=== PATIENT | female | born 1945 | race Caucasian/White ===

== ENCOUNTER 2021-02-09 12:59 | Inpatient (IN) | payer MEDICARE, MEDICAID ==
[2021-02-09 13:43] LABS: #Eosinphils 0.1 10x3/uL (0.0-0.5); #Monocytes 0.5 10x3/uL (0.0-1.1); #Neutrophils 2.7 10x3/uL (1.5-8.4); %Basophils 0.5 % (0.0-2.0); %Eosinophils 1.9 % (0.0-6.0); %Lymphocytes 21.6 % (18.0-47.0); %Monocytes 12.3 % (0.0-10.0); %Neutrophils 63.5 % (40.0-75.0); Hemoglobin 11.3 g/dL (12.0-15.5); Mean Corpuscular Volume 93.8 fl (81.6-98.3); Platelet Count 159 10x3/uL (150-450); Red Blood Cell (RBC) Count 3.89 10x6/uL (3.90-5.03); White Blood Cell (WBC) Count 4.2 10x3/uL (3.5-10.5)
[2021-02-09] MEDS ORDERED: Ondansetron PF 4 MG/2 ML Vial ONE (13:59)
[2021-02-09 14:05] LABS: ALT (SGPT) 17 U/L (8-55); AST (SGOT) 27 U/L (5-34); Albumin 3.5 g/dL (3.4-4.8); Alkaline Phosphatase 45 U/L (40-110); Anion Gap 15 mmol/L (10-20); BUN (Urea Nitrogen) 14 mg/dL (9.8-20.1); Bilirubin, Total 0.7 mg/dL (0.2-1.2); Calc. Creatinine Clearance 0 mL/min (70-130); Calcium 8.4 mg/dL (7.8-10.44); Carbon Dioxide 25 mmol/L (23-31); Chloride 104 mmol/L (98-107); Globulin 2.3 g/dL (2.4-3.5); Glucose 118 mg/dL (83-110); Potassium 4.1 mmol/L (3.5-5.1); Protein, Total 5.8 g/dL (5.8-8.1); Sodium 140 mmol/L (136-145)
[2021-02-09] MEDS ORDERED: hydrALAZINE 20 MG/ML VIAL SLOW IVP PRN (15:13)
[2021-02-09] MEDS ORDERED: Aspirin 81 mg Enteric Coated Tablet PO SCH (16:30)
[2021-02-09] MEDS: Sodium Chloride 0.9% 1,000 ML IV SCH (17:10)
[2021-02-09] MEDS: Atorvastatin Calcium 40 MG TAB PO SCH (20:04)
[2021-02-09] MEDS: Apixaban 5 MG TAB PO SCH (20:04)
[2021-02-09] MEDS ORDERED: Lorazepam 0.5 MG TAB PO PRN (20:53)
[2021-02-09] MEDS ORDERED: Methocarbamol 500 MG TAB PO PRN (20:53)
[2021-02-09] MEDS ORDERED: oxyCODONE/Acetaminophen 5 mg/325 mg Tablet PO PRN (20:53)
[2021-02-09] MEDS ORDERED: Apixaban 5 MG TAB PO SCH (21:00)
[2021-02-09] MEDS ORDERED: Ondansetron ODT 4 MG TAB PO PRN (21:13)
[2021-02-09] MEDS: Pramipexole Di-HCl 0.25 MG TAB PO SCH (21:51)
[2021-02-09] MEDS: clonazePAM 1 MG TAB PO SCH (21:51)
[2021-02-09] MEDS: Gabapentin 300 MG CAP PO SCH (21:52)
[2021-02-09] MEDS: Carvedilol 25 MG TAB PO SCH (21:53)
[2021-02-10] MEDS ORDERED: oxyCODONE 5 MG TAB PO SCH ×2 (00:45→23:00)
[2021-02-10] MEDS ORDERED: Levothyroxine Sodium 88 MCG TAB PO SCH (06:00)
[2021-02-10 06:59] LABS: Cardiac Risk 6.3 (Less than 4.5)
[2021-02-10] MEDS ORDERED: Carvedilol 12.5 MG TAB PO SCH (08:00)
[2021-02-10] MEDS ORDERED: Aluminum & Magnesium Hydroxide 60 ML, Lidocaine 2% Viscous Solution 30 ML, diphenhydrAM... SSW SCH ×2 (09:00→09:30)
[2021-02-10] MEDS ORDERED: NIFEdipine XL 60 MG TAB PO SCH (09:00)
[2021-02-10] MEDS ORDERED: Aluminum & Magnesium Hydroxide 60 ML, diphenhydrAMINE 150 MG, Lidocaine 2% Viscous Solu... SSW SCH (10:00)
[2021-02-10] MEDS: Gabapentin 300 MG CAP PO SCH ×2 (10:59→20:16)
[2021-02-10] MEDS: Pramipexole Di-HCl 0.25 MG TAB PO SCH ×2 (10:59→20:15)
[2021-02-10] MEDS: Carvedilol 25 MG TAB PO SCH ×2 (11:00→20:15)
[2021-02-10] MEDS: Aspirin 81 mg Enteric Coated Tablet PO SCH (11:00)
[2021-02-10] MEDS: Furosemide 20 MG TAB PO SCH (11:00)
[2021-02-10] MEDS: Bupropion 150 MG XL TAB PO SCH (11:00)
[2021-02-10] MEDS: Levothyroxine Sodium 25 MCG TAB PO SCH (11:00)
[2021-02-10] MEDS: Apixaban 5 MG TAB PO SCH (11:00)
[2021-02-10] MEDS: Sodium Chloride 0.9% 1,000 ML IV SCH (11:01)
[2021-02-10] MEDS: Fenofibrate Nanocrystallized 145 MG TAB PO SCH (11:01)
[2021-02-10 12:49] LABS: SARS-CoV-2 PCR by NAA Not Detected (NotDetected)
[2021-02-10] MEDS ORDERED: LENVATINIB MESYLATE PO SCH (13:00)
[2021-02-10] MEDS: Aluminum & Magnesium Hydroxide 60 ML, diphenhydrAMINE 150 MG, Lidocaine 2% Viscous Solu... SSW SCH ×3 (17:08→20:19)
[2021-02-10] MEDS ORDERED: Acetaminophen 325 MG TAB PO PRN (18:28)
[2021-02-10] MEDS: clonazePAM 1 MG TAB PO SCH (20:16)
[2021-02-10] MEDS: Atorvastatin Calcium 40 MG TAB PO SCH (20:16)
[2021-02-10] MEDS: Enoxaparin Sodium 60 MG/0.6 ML SYRINGE SC SCH (20:23)
[2021-02-10] MEDS ORDERED: RAMELTEON 8 MG PO SCH (21:00)
[2021-02-11] MEDS: Sodium Chloride 0.9% 1,000 ML IV SCH (05:46)
[2021-02-11] MEDS: Levothyroxine Sodium 25 MCG TAB PO SCH (06:58)
[2021-02-11] MEDS: Fenofibrate Nanocrystallized 145 MG TAB PO SCH (08:29)
[2021-02-11] MEDS: Pramipexole Di-HCl 0.25 MG TAB PO SCH ×2 (08:29→20:15)
[2021-02-11] MEDS: Furosemide 20 MG TAB PO SCH (08:29)
[2021-02-11] MEDS: Aspirin 81 mg Enteric Coated Tablet PO SCH (08:29)
[2021-02-11] MEDS: Bupropion 150 MG XL TAB PO SCH (08:29)
[2021-02-11] MEDS: Aluminum & Magnesium Hydroxide 60 ML, diphenhydrAMINE 150 MG, Lidocaine 2% Viscous Solu... SSW SCH ×4 (08:30→20:09)
[2021-02-11] MEDS: Gabapentin 300 MG CAP PO SCH ×2 (08:30→20:05)
[2021-02-11] MEDS: Carvedilol 25 MG TAB PO SCH ×3 (08:31→22:21)
[2021-02-11] MEDS: Enoxaparin Sodium 60 MG/0.6 ML SYRINGE SC SCH ×2 (08:37→20:07)
[2021-02-11] MEDS ORDERED: Acetaminophen 325 MG TAB PO PRN (14:00)
[2021-02-11] MEDS: oxyCODONE 5 MG TAB PO PRN (14:24)
[2021-02-11] MEDS ORDERED: Nystatin Powder 15 GM BOT TOP SCH (15:45)
[2021-02-11] MEDS: clonazePAM 1 MG TAB PO SCH (20:06)
[2021-02-11] MEDS: Atorvastatin Calcium 40 MG TAB PO SCH (20:06)
[2021-02-11] MEDS: Nystatin Powder 15 GM BOT TOP SCH (20:10)
[2021-02-12] MEDS: oxyCODONE 5 MG TAB PO PRN (02:01)
[2021-02-12 05:26] LABS: ALT (SGPT) 12 U/L (8-55); AST (SGOT) 19 U/L (5-34); Alkaline Phosphatase 47 U/L (40-110); Anion Gap 15 mmol/L (10-20); BUN (Urea Nitrogen) 14 mg/dL (9.8-20.1); Bilirubin, Total 0.4 mg/dL (0.2-1.2); Calc. Creatinine Clearance 40 mL/min (70-130); Calcium 8.1 mg/dL (7.8-10.44); Carbon Dioxide 28 mmol/L (23-31); Chloride 100 mmol/L (98-107); Globulin 2.1 g/dL (2.4-3.5); Glucose 104 mg/dL (83-110); Potassium 3.5 mmol/L (3.5-5.1); Protein, Total 5.1 g/dL (5.8-8.1); Sodium 139 mmol/L (136-145)
[2021-02-12] MEDS: Sodium Chloride 0.9% 1,000 ML IV SCH (05:28)
[2021-02-12] MEDS: Bupropion 150 MG XL TAB PO SCH (09:05)
[2021-02-12] MEDS: Carvedilol 25 MG TAB PO SCH ×2 (09:05→21:50)
[2021-02-12] MEDS: Aspirin 81 mg Enteric Coated Tablet PO SCH (09:05)
[2021-02-12] MEDS: Enoxaparin Sodium 60 MG/0.6 ML SYRINGE SC SCH ×2 (09:06→21:52)
[2021-02-12] MEDS: Nystatin Powder 15 GM BOT TOP SCH ×3 (09:07→23:31)
[2021-02-12] MEDS: Gabapentin 300 MG CAP PO SCH ×2 (09:09→21:51)
[2021-02-12] MEDS: Fenofibrate Nanocrystallized 145 MG TAB PO SCH (09:11)
[2021-02-12] MEDS: Pramipexole Di-HCl 0.25 MG TAB PO SCH ×2 (09:13→21:50)
[2021-02-12] MEDS: Aluminum & Magnesium Hydroxide 60 ML, diphenhydrAMINE 150 MG, Lidocaine 2% Viscous Solu... SSW SCH ×4 (09:14→23:31)
[2021-02-12] MEDS: Levothyroxine Sodium 25 MCG TAB PO SCH (12:36)
[2021-02-12] MEDS: Atorvastatin Calcium 40 MG TAB PO SCH (21:51)
[2021-02-12] MEDS: clonazePAM 1 MG TAB PO SCH (21:52)
[2021-02-13] MEDS: Sodium Chloride 0.9% 1,000 ML IV SCH ×2 (00:56→18:18)
[2021-02-13 04:50] LABS: #Eosinphils 0.1 10x3/uL (0.0-0.5); #Monocytes 0.3 10x3/uL (0.0-1.1); #Neutrophils 1.4 10x3/uL (1.5-8.4); %Basophils 0.4 % (0.0-2.0); %Eosinophils 4.4 % (0.0-6.0); %Lymphocytes 32.7 % (18.0-47.0); %Monocytes 12.4 % (0.0-10.0); %Neutrophils 49.7 % (40.0-75.0); Hemoglobin 9.4 g/dL (12.0-15.5); Mean Corpuscular HGB CONC 30.7 g/dL (32.0-36.0); Mean Corpuscular Volume 94.4 fl (81.6-98.3); Mean Platelet Volume 11.4 fl (7.4-10.4); Platelet Count 141 10x3/uL (150-450); RBC Distribution Width 17.6 % (11.5-14.5); Red Blood Cell (RBC) Count 3.24 10x6/uL (3.90-5.03); White Blood Cell (WBC) Count 2.8 10x3/uL (3.5-10.5)
[2021-02-13] MEDS: Levothyroxine Sodium 25 MCG TAB PO SCH (06:38)
[2021-02-13 06:58] VITALS: BMI 32.8
[2021-02-13] MEDS ORDERED: Enoxaparin Sodium 60 MG/0.6 ML SYRINGE ONE (07:43)
[2021-02-13] MEDS: Carvedilol 25 MG TAB PO SCH ×2 (07:58→21:38)
[2021-02-13] MEDS: Aspirin 81 mg Enteric Coated Tablet PO SCH (07:59)
[2021-02-13] MEDS: Gabapentin 300 MG CAP PO SCH ×2 (07:59→21:38)
[2021-02-13] MEDS: Bupropion 150 MG XL TAB PO SCH (08:00)
[2021-02-13] MEDS: Enoxaparin Sodium 60 MG/0.6 ML SYRINGE SC SCH ×2 (08:07→21:39)
[2021-02-13] MEDS: Nystatin Powder 15 GM BOT TOP SCH ×3 (08:09→23:13)
[2021-02-13] MEDS: Fenofibrate Nanocrystallized 145 MG TAB PO SCH (08:14)
[2021-02-13] MEDS: Pramipexole Di-HCl 0.25 MG TAB PO SCH ×2 (08:14→21:37)
[2021-02-13] MEDS: Aluminum & Magnesium Hydroxide 60 ML, diphenhydrAMINE 150 MG, Lidocaine 2% Viscous Solu... SSW SCH ×4 (15:18→23:13)
[2021-02-13] MEDS: Atorvastatin Calcium 40 MG TAB PO SCH (21:37)
[2021-02-13] MEDS: clonazePAM 1 MG TAB PO SCH (21:38)
[2021-02-14] MEDS: Levothyroxine Sodium 25 MCG TAB PO SCH (06:55)
[2021-02-14] MEDS ORDERED: Enoxaparin Sodium 60 MG/0.6 ML SYRINGE ONE (07:04)
[2021-02-14] MEDS: Bupropion 150 MG XL TAB PO SCH (09:22)
[2021-02-14] MEDS: Aspirin 81 mg Enteric Coated Tablet PO SCH (09:22)
[2021-02-14] MEDS: Gabapentin 300 MG CAP PO SCH (09:22)
[2021-02-14] MEDS: Fenofibrate Nanocrystallized 145 MG TAB PO SCH (09:24)
[2021-02-14] MEDS: Aluminum & Magnesium Hydroxide 60 ML, diphenhydrAMINE 150 MG, Lidocaine 2% Viscous Solu... SSW SCH ×3 (09:25→16:20)
[2021-02-14] MEDS: Carvedilol 25 MG TAB PO SCH (09:29)
[2021-02-14] MEDS: Pramipexole Di-HCl 0.25 MG TAB PO SCH (09:31)
[2021-02-14] MEDS: Nystatin Powder 15 GM BOT TOP SCH ×2 (09:32→16:19)
[2021-02-14] MEDS ORDERED: Apixaban 5 MG TAB PO SCH ×2 (12:30→21:00)
[2021-02-14 12:31] VITALS: BP 130/78; TEMP 98.4
[2021-02-14] MEDS: Sodium Chloride 0.9% 1,000 ML IV SCH (16:19)
== END 2021-02-14 16:34 | disposition home or self-care (01) | DRG 69 ==
LOC: CSHERS 12:59 → CSHTELE 14:47 → UNDOADMOB 16:22 → INTOOBSV 16:22 → CSHTELE 16:22 → OBSVTOIN 02-12 09:42
PROVIDERS: ADMIT Family Medicine; ATTEND Family Medicine
DX: G45.9 Transient cerebral ischemic attack, unspecified (principal); I82.210 Acute embolism and thrombosis of superior vena cava; E03.9 Hypothyroidism, unspecified; I10 Essential (primary) hypertension; Z88.2 Allergy status to sulfonamides; R55 Syncope and collapse; C73 Malignant neoplasm of thyroid gland; Z20.822 Contact with and (suspected) exposure to COVID-19
CPT/HCPCS: 36415; 70450; 70551; 71045; 80053; 80061; 83880; 84443; 84484; 85025; 85379; 87635; 93005; 93306; 96372; 96374; G0378; J1650; J2405; Q0163; U0003; U0005

== ENCOUNTER 2021-07-01 17:30 | Inpatient (IN) | payer MEDICARE, MEDICAID ==
[2021-07-01] MEDS ORDERED: Metoprolol Tartrate 5 MG/5 ML VIAL ONE (17:57)
[2021-07-01 18:17] LABS: Hemoglobin 9.8 g/dL (12.0-15.5); Mean Corpuscular HGB CONC 32.5 g/dL (32.0-36.0); Mean Corpuscular Hemoglobin 29.5 pg (27.0-33.0); Mean Platelet Volume 9.6 fl (7.4-10.4); Platelet Count 129 10x3/uL (150-450); RBC Distribution Width 17.6 % (11.5-14.5); Red Blood Cell (RBC) Count 3.32 10x6/uL (3.90-5.03); White Blood Cell (WBC) Count 3.3 10x3/uL (3.5-10.5)
[2021-07-01 18:26] LABS: MDiff Complete? YES
[2021-07-01 18:28] LABS: ALT (SGPT) 20 U/L (8-55); AST (SGOT) 19 U/L (5-34); Albumin 2.9 g/dL (3.4-4.8); Alkaline Phosphatase 53 U/L (40-110); Anion Gap 16 mmol/L (10-20); BUN (Urea Nitrogen) 15 mg/dL (9.8-20.1); Bilirubin, Total 1.1 mg/dL (0.2-1.2); CK (CPK) 58 U/L (29-168); Calc. Creatinine Clearance 0 mL/min (70-130); Calcium 9.3 mg/dL (7.8-10.44); Carbon Dioxide 21 mmol/L (23-31); Chloride 97 mmol/L (98-107); Glucose 71 mg/dL (83-110); Lipase 6 U/L (8-78); Potassium 3.2 mmol/L (3.5-5.1); Protein, Total 5.9 g/dL (5.8-8.1); Sodium 131 mmol/L (136-145)
[2021-07-01 18:32] LABS: CKMB 0.9 ng/mL (0-6.6)
[2021-07-01 18:41] LABS: Eosinophils 1 % (0-10); Lymphocytes 7 % (21-51); Monocytes 11 % (0-10); Neutrophil 80 % (42-75); Reactive Lymphocytes 1 % (0-10)
[2021-07-01 18:43] LABS: Anisocytosis SLIGHT = 6-15 cells (100X) (0-5/hpf); Platelet Morphology Comment Appears Decreased
[2021-07-01 18:56] LABS: Bilirubin Neg (Negative); Blood, Urine 150 (Negative); Clarity Cloudy (Clear); Glucose, Urine (Dipstick) Normal (Negative); Ketone, Urine Negative (Negative); Leukocyte 500 (Negative); Nitrite Positive (Negative); Protein, Urine (Dipstick) 100 mg/dl (Neg-Trace); Specific Gravity, Urine 1.015 (1.002-1.036)
[2021-07-01] MEDS ORDERED: Potassium Chloride 20 MEQ TAB ONE (19:09)
[2021-07-01 19:15] LABS: Bacteria/HPF 4+ HPF (None Seen); Squamous Epithelial None Seen HPF (0-3); WBC/HPF Greater than 50 HPF (0-3)
[2021-07-01] MEDS ORDERED: Morphine 2 MG/ML VIAL ONE (20:21)
[2021-07-01] MEDS ORDERED: cefTRIAXone\\ROCEPHIN 1 GM VIAL ONE (20:21)
[2021-07-01] MEDS ORDERED: Ondansetron PF 4 MG/2 ML Vial IVP PRN (23:22)
[2021-07-01] MEDS ORDERED: Morphine 2 MG/ML VIAL SLOW IVP PRN (23:26)
[2021-07-01] MEDS ORDERED: Meropenem 500 MG VIAL ONE (23:37)
[2021-07-02] MEDS ORDERED: metroNIDAZOLE 500 MG/100 ML BAG ONE (00:23)
[2021-07-02] MEDS ORDERED: Metoprolol Tartrate 5 MG/5 ML VIAL ONE (00:23)
[2021-07-02 01:16] LABS: SARS-CoV-2 NAA Rapid Test Not Detected (NotDetected)
[2021-07-02 03:44] LABS: Mean Corpuscular HGB CONC 31.9 g/dL (32.0-36.0); Mean Corpuscular Hemoglobin 29.4 pg (27.0-33.0); Mean Corpuscular Volume 92.2 fl (81.6-98.3); Mean Platelet Volume 8.9 fl (7.4-10.4); Platelet Count 107 10x3/uL (150-450); RBC Distribution Width 18.2 % (11.5-14.5); Red Blood Cell (RBC) Count 3.06 10x6/uL (3.90-5.03); White Blood Cell (WBC) Count 2.2 10x3/uL (3.5-10.5)
[2021-07-02 03:55] LABS: ALT (SGPT) 17 U/L (8-55); AST (SGOT) 16 U/L (5-34); Albumin 2.5 g/dL (3.4-4.8); Alkaline Phosphatase 46 U/L (40-110); Anion Gap 14 mmol/L (10-20); BUN (Urea Nitrogen) 10 mg/dL (9.8-20.1); Bilirubin, Total 0.6 mg/dL (0.2-1.2); Calc. Creatinine Clearance 0 mL/min (70-130); Calcium 8.4 mg/dL (7.8-10.44); Carbon Dioxide 20 mmol/L (23-31); Chloride 106 mmol/L (98-107); Globulin 2.5 g/dL (2.4-3.5); Glucose 82 mg/dL (83-110); Magnesium 1.6 mg/dL (1.6-2.6); Potassium 3.5 mmol/L (3.5-5.1); Sodium 136 mmol/L (136-145)
[2021-07-02 04:42] LABS: MDiff Complete? YES
[2021-07-02 04:48] LABS: Band 24 % (5-11); Eosinophils 1 % (0-10); Lymphocytes 8 % (21-51); Monocytes 8 % (0-10); Myelocyte 2 % (0-0); Neutrophil 57 % (42-75)
[2021-07-02 04:49] LABS: Platelet Morphology Comment Appears Decreased
[2021-07-02] MEDS ORDERED: Metoprolol Tartrate 5 MG/5 ML VIAL IVP SCH (06:00)
[2021-07-02] MEDS ORDERED: metroNIDAZOLE 500 MG in Premix Bag 1 BAG IVPB SCH (08:00)
[2021-07-02 08:21] VITALS: BMI 32.8
[2021-07-02] MEDS: MEROPENEM 1 GM/50 ML 1 GM in Premix Bag 1 BAG IVPB SCH ×2 (10:24→16:51)
[2021-07-02] MEDS: Famotidine/PF 20 mg/2ml Vial SLOW IVP SCH ×2 (10:24→21:02)
[2021-07-02] MEDS: Morphine 4 MG/ML VIAL SLOW IVP PRN (10:24)
[2021-07-02] MEDS: Enoxaparin Sodium 40 MG/0.4 ML SYRINGE SC SCH (10:25)
[2021-07-02] MEDS: Dextrose 5 % And 0.9 % NaCl 1,000 ML IV SCH ×3 (10:51→21:00)
[2021-07-02] MEDS ORDERED: Albuterol Sulfate 2.5 mg/3 ml Neb NEB PRN (18:48)
[2021-07-02] MEDS: ALPRAZolam 0.5 MG TAB PO PRN (22:26)
[2021-07-03] MEDS: MEROPENEM 1 GM/50 ML 1 GM in Premix Bag 1 BAG IVPB SCH ×2 (00:53→10:32)
[2021-07-03] MEDS: Dextrose 5 % And 0.9 % NaCl 1,000 ML IV SCH (07:35)
[2021-07-03 08:58] LABS: Hemoglobin 8.5 g/dL (12.0-15.5); Mean Corpuscular HGB CONC 32.1 g/dL (32.0-36.0); Mean Corpuscular Hemoglobin 29.2 pg (27.0-33.0); Mean Corpuscular Volume 91.1 fl (81.6-98.3); Mean Platelet Volume 9.1 fl (7.4-10.4); Platelet Count 104 10x3/uL (150-450); RBC Distribution Width 18.3 % (11.5-14.5); Red Blood Cell (RBC) Count 2.91 10x6/uL (3.90-5.03)
[2021-07-03 09:06] LABS: Anion Gap 11 mmol/L (10-20); BUN (Urea Nitrogen) 5 mg/dL (9.8-20.1); Calc. Creatinine Clearance 109 mL/min (70-130); Calcium 8.3 mg/dL (7.8-10.44); Carbon Dioxide 21 mmol/L (23-31); Chloride 106 mmol/L (98-107); Glucose 98 mg/dL (83-110); Sodium 135 mmol/L (136-145)
[2021-07-03 09:13] LABS: MDiff Complete? YES
[2021-07-03 09:58] LABS: Band 6 % (5-11); Eosinophils 1 % (0-10); Lymphocytes 14 % (21-51); Metamyelocyte 1 % (0-0); Monocytes 6 % (0-10); Neutrophil 72 % (42-75)
[2021-07-03 10:02] LABS: Platelet Morphology Comment Appears Decreased
[2021-07-03] MEDS: Enoxaparin Sodium 40 MG/0.4 ML SYRINGE SC SCH (10:30)
[2021-07-03] MEDS: Morphine 4 MG/ML VIAL SLOW IVP PRN ×2 (10:30→18:10)
[2021-07-03] MEDS: Famotidine/PF 20 mg/2ml Vial SLOW IVP SCH ×2 (10:33→20:40)
[2021-07-03] MEDS ORDERED: VANCOMYCIN 1.25 GM/250 ML BAG 1.25 GM in Premix Bag 1 BAG IVPB SCH (14:00)
[2021-07-03] MEDS ORDERED: Piperacillin/Tazobactam 3.375 GM in Sodium Chloride 0.9% 100 ML IVPB SCH (14:00)
[2021-07-03] MEDS ORDERED: hydrALAZINE 20 MG/ML VIAL SLOW IVP PRN (15:06)
[2021-07-03] MEDS ORDERED: Morphine 4 MG/ML VIAL SLOW IVP PRN (15:13)
[2021-07-03] MEDS ORDERED: Aspirin 325 MG TAB PO SCH (17:30)
[2021-07-03] MEDS ORDERED: Aspirin 325 MG TAB ONE (17:30)
[2021-07-03 18:54] LABS: Hemoglobin 9.1 g/dL (12.0-15.5); Mean Corpuscular HGB CONC 32.9 g/dL (32.0-36.0); Mean Corpuscular Hemoglobin 29.8 pg (27.0-33.0); Mean Corpuscular Volume 90.8 fl (81.6-98.3); Mean Platelet Volume 10.2 fl (7.4-10.4); Platelet Count 106 10x3/uL (150-450); RBC Distribution Width 18.3 % (11.5-14.5); Red Blood Cell (RBC) Count 3.05 10x6/uL (3.90-5.03); White Blood Cell (WBC) Count 2.1 10x3/uL (3.5-10.5)
[2021-07-03 18:56] LABS: Lactic Acid 1.3 mmol/L (0.5-2.2)
[2021-07-03 18:58] LABS: Anion Gap 12 mmol/L (10-20); BUN (Urea Nitrogen) 4 mg/dL (9.8-20.1); Calc. Creatinine Clearance 103 mL/min (70-130); Calcium 8.3 mg/dL (7.8-10.44); Carbon Dioxide 21 mmol/L (23-31); Chloride 104 mmol/L (98-107); Glucose 102 mg/dL (83-110); Potassium 3.2 mmol/L (3.5-5.1); Sodium 134 mmol/L (136-145)
[2021-07-03 19:05] LABS: Troponin I 0.014 ng/mL (< 0.028)
[2021-07-03] MEDS ORDERED: Potassium Chloride 20 MEQ TAB PO SCH (19:15)
[2021-07-03] MEDS: Piperacillin/Tazobactam 3.375 GM in Sodium Chloride 0.9% 100 ML IVPB SCH (19:45)
[2021-07-03] MEDS: ALPRAZolam 0.5 MG TAB PO PRN (20:42)
[2021-07-03 20:47] LABS: MDiff Complete? YES
[2021-07-03 20:52] LABS: Band 2 % (5-11); Eosinophils 1 % (0-10); Lymphocytes 8 % (21-51); Monocytes 5 % (0-10); Neutrophil 83 % (42-75); Reactive Lymphocytes 1 % (0-10)
[2021-07-03 20:54] LABS: Large Platelets SLIGHT; Platelet Morphology Comment Appears Decreased
[2021-07-03 21:04] LABS: Troponin I 0.017 ng/mL (< 0.028)
[2021-07-04 00:43] LABS: Troponin I 0.014 ng/mL (< 0.028)
[2021-07-04] MEDS ORDERED: Sodium Chloride 0.9% 250 ML 250 ML ONE (04:53)
[2021-07-04] MEDS: Piperacillin/Tazobactam 3.375 GM in Sodium Chloride 0.9% 100 ML IVPB SCH (05:04)
[2021-07-04] MEDS: Vancomycin HCl 750 MG in Sodium Chloride 0.9% 250 ML 250 ML IVPB SCH ×2 (05:05→15:15)
[2021-07-04] MEDS: Dextrose 5 % And 0.9 % NaCl 1,000 ML IV SCH ×3 (05:06→10:09)
[2021-07-04 05:52] LABS: Hemoglobin 8.8 g/dL (12.0-15.5); Mean Corpuscular HGB CONC 32.7 g/dL (32.0-36.0); Mean Corpuscular Hemoglobin 29.6 pg (27.0-33.0); Mean Corpuscular Volume 90.6 fl (81.6-98.3); Mean Platelet Volume 9.4 fl (7.4-10.4); Platelet Count 100 10x3/uL (150-450); RBC Distribution Width 18.3 % (11.5-14.5); Red Blood Cell (RBC) Count 2.97 10x6/uL (3.90-5.03); White Blood Cell (WBC) Count 2.7 10x3/uL (3.5-10.5)
[2021-07-04 06:16] LABS: Anion Gap 12 mmol/L (10-20); BUN (Urea Nitrogen) 5 mg/dL (9.8-20.1); Calc. Creatinine Clearance 101 mL/min (70-130); Calcium 8.2 mg/dL (7.8-10.44); Carbon Dioxide 20 mmol/L (23-31); Chloride 106 mmol/L (98-107); Glucose 124 mg/dL (83-110); Sodium 135 mmol/L (136-145)
[2021-07-04 06:20] LABS: MDiff Complete? YES
[2021-07-04 06:27] LABS: Band 15 % (5-11); Eosinophils 4 % (0-10); Lymphocytes 9 % (21-51); Monocytes 6 % (0-10); Myelocyte 1 % (0-0); Neutrophil 65 % (42-75)
[2021-07-04] MEDS: Levothyroxine Sodium 88 MCG TAB PO SCH (07:54)
[2021-07-04] MEDS: Famotidine/PF 20 mg/2ml Vial SLOW IVP SCH (10:07)
[2021-07-04] MEDS: Enoxaparin Sodium 40 MG/0.4 ML SYRINGE SC SCH (10:08)
[2021-07-04] MEDS: NIFEdipine XL 60 MG TAB PO SCH (10:09)
[2021-07-04 10:24] LABS: Magnesium 1.4 mg/dL (1.6-2.6)
[2021-07-04] MEDS ORDERED: Magnesium Oxide 400 MG TAB PO SCH (10:45)
[2021-07-04] MEDS ORDERED: Potassium Chloride 20 MEQ TAB PO SCH ×3 (11:00→17:00)
[2021-07-04] MEDS ORDERED: Bisacodyl 10 MG SUPP PR PRN (15:25)
[2021-07-04] MEDS ORDERED: Milk Of Magnesia 30 ML UDCUP PO PRN (15:25)
[2021-07-04] MEDS: Capsaicin 0.025% Cream 60 gm Tube TOP PRN (17:51)
[2021-07-04] MEDS: Morphine 4 MG/ML VIAL SLOW IVP PRN (17:53)
[2021-07-04] MEDS: Amoxicillin/Potassium Clav 875 MG TAB PO SCH (21:09)
[2021-07-04] MEDS: Pramipexole Di-HCl 0.25 MG TAB PO SCH (21:09)
[2021-07-04] MEDS: clonazePAM 1 MG TAB PO SCH (21:09)
[2021-07-05] MEDS: Vancomycin HCl 750 MG in Sodium Chloride 0.9% 250 ML 250 ML IVPB SCH ×2 (02:34→15:07)
[2021-07-05 05:46] LABS: Anion Gap 9 mmol/L (10-20); BUN (Urea Nitrogen) 4 mg/dL (9.8-20.1); Calc. Creatinine Clearance 118 mL/min (70-130); Calcium 7.8 mg/dL (7.8-10.44); Carbon Dioxide 22 mmol/L (23-31); Chloride 106 mmol/L (98-107); Glucose 92 mg/dL (83-110); Magnesium 1.4 mg/dL (1.6-2.6); Mean Corpuscular HGB CONC 32.1 g/dL (32.0-36.0); Mean Corpuscular Hemoglobin 29.6 pg (27.0-33.0); Mean Corpuscular Volume 92.2 fl (81.6-98.3); Mean Platelet Volume 9.9 fl (7.4-10.4); Platelet Count 111 10x3/uL (150-450); Potassium 3.3 mmol/L (3.5-5.1); RBC Distribution Width 18.6 % (11.5-14.5); Sodium 134 mmol/L (136-145); White Blood Cell (WBC) Count 2.7 10x3/uL (3.5-10.5)
[2021-07-05] MEDS: Levothyroxine Sodium 88 MCG TAB PO SCH (06:14)
[2021-07-05 07:07] LABS: Band 30 % (5-11); Eosinophils 1 % (0-10); Lymphocytes 6 % (21-51); Monocytes 11 % (0-10); Neutrophil 49 % (42-75); Reactive Lymphocytes 3 % (0-10)
[2021-07-05 07:08] LABS: Anisocytosis SLIGHT = 6-15 cells (100X) (0-5/hpf); Microcytosis SLIGHT = 6-15 cells (100X) (0-5/hpf); Ovalocytes SLIGHT = 2-5 cells (100X) (0-1/hpf)
[2021-07-05 07:09] LABS: Dohle Bodies SLIGHT; Large Platelets SLIGHT; Platelet Morphology Comment Appears Decreased; Toxic Granulation MODERATE
[2021-07-05 07:11] LABS: MDiff Complete? YES; Manual Diff?? YES
[2021-07-05] MEDS ORDERED: Magnesium 2 GM/50 ML 2 GM in Premix Bag 1 BAG IVPB SCH (09:00)
[2021-07-05] MEDS: Dextrose 5 % And 0.9 % NaCl 1,000 ML IV SCH ×3 (09:31→15:53)
[2021-07-05] MEDS: Bupropion 150 MG XL TAB PO SCH (09:42)
[2021-07-05] MEDS: Amoxicillin/Potassium Clav 875 MG TAB PO SCH ×2 (09:42→21:38)
[2021-07-05] MEDS: Enoxaparin Sodium 40 MG/0.4 ML SYRINGE SC SCH (09:43)
[2021-07-05] MEDS: Famotidine 20 MG TAB PO SCH (09:44)
[2021-07-05] MEDS: Fenofibrate Nanocrystallized 145 MG TAB PO SCH (09:44)
[2021-07-05] MEDS: Pramipexole Di-HCl 0.25 MG TAB PO SCH ×2 (09:44→21:39)
[2021-07-05] MEDS: NIFEdipine XL 60 MG TAB PO SCH (09:44)
[2021-07-05 13:10] LABS: Vancomycin, Trough 11.7 ug/mL
[2021-07-05] MEDS: HYDROcodone/Acetaminophen 7.5/325 mg Tablet PO PRN ×2 (15:31→21:47)
[2021-07-05] MEDS: Vancomycin HCl 1 GM in Sodium Chloride 0.9% 250 ML 250 ML IVPB SCH (15:53)
[2021-07-05] MEDS: clonazePAM 1 MG TAB PO SCH (21:38)
[2021-07-05] MEDS: Apixaban 5 MG TAB PO SCH (21:38)
[2021-07-06] MEDS: Vancomycin HCl 1 GM in Sodium Chloride 0.9% 250 ML 250 ML IVPB SCH (03:30)
[2021-07-06 05:11] LABS: Anion Gap 9 mmol/L (10-20); BUN (Urea Nitrogen) 4 mg/dL (9.8-20.1); Calc. Creatinine Clearance 109 mL/min (70-130); Calcium 7.8 mg/dL (7.8-10.44); Carbon Dioxide 24 mmol/L (23-31); Chloride 105 mmol/L (98-107); Glucose 98 mg/dL (83-110); Potassium 3.2 mmol/L (3.5-5.1); Sodium 135 mmol/L (136-145)
[2021-07-06] MEDS: Levothyroxine Sodium 88 MCG TAB PO SCH (05:16)
[2021-07-06] MEDS: Dextrose 5 % And 0.9 % NaCl 1,000 ML IV SCH (05:17)
[2021-07-06 05:47] LABS: #Monocytes 0.3 10x3/uL (0.0-1.1); #Neutrophils 1.8 10x3/uL (1.5-8.4); %Basophils 0.8 % (0.0-2.0); %Eosinophils 1.5 % (0.0-6.0); %Lymphocytes 19.2 % (18.0-47.0); %Monocytes 10.5 % (0.0-10.0); %Neutrophils 66.9 % (40.0-75.0); Hemoglobin 8.5 g/dL (12.0-15.5); Mean Corpuscular HGB CONC 31.5 g/dL (32.0-36.0); Mean Corpuscular Hemoglobin 29.1 pg (27.0-33.0); Mean Corpuscular Volume 92.5 fl (81.6-98.3); Mean Platelet Volume 10.2 fl (7.4-10.4); Platelet Count 114 10x3/uL (150-450); RBC Distribution Width 18.2 % (11.5-14.5); Red Blood Cell (RBC) Count 2.92 10x6/uL (3.90-5.03); White Blood Cell (WBC) Count 2.7 10x3/uL (3.5-10.5)
[2021-07-06 06:55] LABS: Band 23 % (5-11); Eosinophils 2 % (0-10); Monocytes 7 % (0-10)
[2021-07-06 06:57] LABS: Lymphocytes 14 % (21-51)
[2021-07-06 06:59] LABS: Anisocytosis SLIGHT = 6-15 cells (100X) (0-5/hpf); Microcytosis SLIGHT = 6-15 cells (100X) (0-5/hpf); Ovalocytes SLIGHT = 2-5 cells (100X) (0-1/hpf); Platelet Morphology Comment Appears Decreased; Small Platelets SLIGHT; Toxic Granulation SLIGHT
[2021-07-06 07:02] LABS: Manual Diff?? YES; Neutrophil 54 % (42-75)
[2021-07-06] MEDS: NIFEdipine XL 60 MG TAB PO SCH (09:17)
[2021-07-06] MEDS: Amoxicillin/Potassium Clav 875 MG TAB PO SCH ×2 (09:17→19:48)
[2021-07-06] MEDS: Pramipexole Di-HCl 0.25 MG TAB PO SCH ×2 (09:17→19:48)
[2021-07-06] MEDS: Apixaban 5 MG TAB PO SCH ×2 (09:17→19:48)
[2021-07-06] MEDS: Bupropion 150 MG XL TAB PO SCH (09:17)
[2021-07-06] MEDS: Fenofibrate Nanocrystallized 145 MG TAB PO SCH (09:17)
[2021-07-06] MEDS: Famotidine 20 MG TAB PO SCH (09:18)
[2021-07-06] MEDS: HYDROcodone/Acetaminophen 7.5/325 mg Tablet PO PRN (09:48)
[2021-07-06] MEDS ORDERED: Magnesium 2 GM/50 ML 2 GM in Premix Bag 1 BAG IVPB SCH (11:45)
[2021-07-06] MEDS ORDERED: Potassium Chloride 20 MEQ TAB PO SCH (11:45)
[2021-07-06] MEDS ORDERED: oxyCODONE/Acetaminophen 5 mg/325 mg Tablet PO PRN (12:02)
[2021-07-06] MEDS ORDERED: Acetaminophen 325 MG TAB PO PRN (12:09)
[2021-07-06] MEDS: oxyCODONE 5 MG TAB PO PRN (19:37)
[2021-07-06] MEDS: clonazePAM 1 MG TAB PO SCH (19:48)
[2021-07-07 05:06] LABS: Anion Gap 11 mmol/L (10-20); BUN (Urea Nitrogen) Less than 4 mg/dL (9.8-20.1); Calc. Creatinine Clearance 111 mL/min (70-130); Calcium 7.6 mg/dL (7.8-10.44); Carbon Dioxide 22 mmol/L (23-31); Chloride 108 mmol/L (98-107); Glucose 110 mg/dL (83-110); Magnesium 1.8 mg/dL (1.6-2.6); Potassium 3.1 mmol/L (3.5-5.1); Sodium 138 mmol/L (136-145)
[2021-07-07] MEDS: Levothyroxine Sodium 88 MCG TAB PO SCH (05:40)
[2021-07-07 06:03] LABS: #Monocytes 0.3 10x3/uL (0.0-1.1); #Neutrophils 1.6 10x3/uL (1.5-8.4); %Basophils 0.4 % (0.0-2.0); %Eosinophils 0.8 % (0.0-6.0); %Lymphocytes 22.3 % (18.0-47.0); %Neutrophils 62.7 % (40.0-75.0); Hemoglobin 8.3 g/dL (12.0-15.5); Mean Corpuscular HGB CONC 31.2 g/dL (32.0-36.0); Mean Corpuscular Hemoglobin 29.5 pg (27.0-33.0); Mean Corpuscular Volume 94.7 fl (81.6-98.3); Mean Platelet Volume 9.7 fl (7.4-10.4); Platelet Count 110 10x3/uL (150-450); RBC Distribution Width 17.9 % (11.5-14.5); Red Blood Cell (RBC) Count 2.81 10x6/uL (3.90-5.03); White Blood Cell (WBC) Count 2.5 10x3/uL (3.5-10.5)
[2021-07-07 06:31] LABS: Eosinophils 1 % (0-10); Lymphocytes 15 % (21-51); Myelocyte 1 % (0-0); Reactive Lymphocytes 3 % (0-10)
[2021-07-07 06:35] LABS: Band 24 % (5-11); Neutrophil 49 % (42-75)
[2021-07-07 06:36] LABS: Anisocytosis SLIGHT = 6-15 cells (100X) (0-5/hpf); Microcytosis SLIGHT = 6-15 cells (100X) (0-5/hpf); Monocytes 7 % (0-10)
[2021-07-07 06:37] LABS: Ovalocytes SLIGHT = 2-5 cells (100X) (0-1/hpf)
[2021-07-07 06:38] LABS: Hypochromia SLIGHT = 6-15 cells (100X) (0-5/hpf); Platelet Clumps SLIGHT; Platelet Morphology Comment Appears Decreased; Toxic Granulation SLIGHT
[2021-07-07 06:39] LABS: Manual Diff?? YES
[2021-07-07] MEDS ORDERED: Magnesium 2 GM/50 ML 2 GM in Premix Bag 1 BAG IVPB SCH (09:30)
[2021-07-07] MEDS: Famotidine 20 MG TAB PO SCH (09:31)
[2021-07-07] MEDS: NIFEdipine XL 60 MG TAB PO SCH (09:31)
[2021-07-07] MEDS: Pramipexole Di-HCl 0.25 MG TAB PO SCH ×2 (09:31→20:31)
[2021-07-07] MEDS: Bupropion 150 MG XL TAB PO SCH (09:31)
[2021-07-07] MEDS: Amoxicillin/Potassium Clav 875 MG TAB PO SCH ×2 (09:31→20:31)
[2021-07-07] MEDS: Apixaban 5 MG TAB PO SCH ×2 (09:32→20:31)
[2021-07-07] MEDS: Fenofibrate Nanocrystallized 145 MG TAB PO SCH (09:39)
[2021-07-07] MEDS: Potassium Chloride 20 MEQ TAB PO SCH ×2 (09:45→15:19)
[2021-07-07 14:21] LABS: Anion Gap 12 mmol/L (10-20); BUN (Urea Nitrogen) Less than 4 mg/dL (9.8-20.1); Calc. Creatinine Clearance 116 mL/min (70-130); Carbon Dioxide 24 mmol/L (23-31); Chloride 105 mmol/L (98-107); Glucose 94 mg/dL (83-110); Potassium 3.2 mmol/L (3.5-5.1); Sodium 138 mmol/L (136-145)
[2021-07-07] MEDS: oxyCODONE 5 MG TAB PO PRN ×2 (14:44→20:32)
[2021-07-07] MEDS ORDERED: Potassium Chloride 20 MEQ TAB PO SCH ×2 (14:45→17:15)
[2021-07-07] MEDS: ALPRAZolam 0.5 MG TAB PO PRN (16:13)
[2021-07-07] MEDS: clonazePAM 1 MG TAB PO SCH (20:31)
[2021-07-07] MEDS: Capsaicin 0.025% Cream 60 gm Tube TOP PRN (20:34)
[2021-07-08] MEDS: oxyCODONE 5 MG TAB PO PRN ×3 (03:53→21:29)
[2021-07-08] MEDS: Capsaicin 0.025% Cream 60 gm Tube TOP PRN (03:54)
[2021-07-08] MEDS: Levothyroxine Sodium 88 MCG TAB PO SCH (05:24)
[2021-07-08] MEDS: NIFEdipine XL 60 MG TAB PO SCH (09:34)
[2021-07-08] MEDS: Pramipexole Di-HCl 0.25 MG TAB PO SCH ×2 (09:35→21:18)
[2021-07-08] MEDS: Bupropion 150 MG XL TAB PO SCH (09:35)
[2021-07-08] MEDS: Apixaban 5 MG TAB PO SCH ×2 (09:35→21:18)
[2021-07-08] MEDS: Amoxicillin/Potassium Clav 875 MG TAB PO SCH ×2 (09:35→21:18)
[2021-07-08] MEDS: Famotidine 20 MG TAB PO SCH (09:35)
[2021-07-08] MEDS: Fenofibrate Nanocrystallized 145 MG TAB PO SCH (09:35)
[2021-07-08 18:36] LABS: Anion Gap 11 mmol/L (10-20); BUN (Urea Nitrogen) 4 mg/dL (9.8-20.1); Calc. Creatinine Clearance 105 mL/min (70-130); Calcium 8.3 mg/dL (7.8-10.44); Carbon Dioxide 25 mmol/L (23-31); Chloride 103 mmol/L (98-107); Glucose 96 mg/dL (83-110); Potassium 4.4 mmol/L (3.5-5.1); Sodium 135 mmol/L (136-145)
[2021-07-08] MEDS: clonazePAM 1 MG TAB PO SCH (21:18)
[2021-07-09] MEDS: oxyCODONE 5 MG TAB PO PRN ×3 (00:45→14:27)
[2021-07-09] MEDS: Levothyroxine Sodium 88 MCG TAB PO SCH (06:34)
[2021-07-09 06:44] LABS: Hemoglobin 8.4 g/dL (12.0-15.5); Mean Corpuscular HGB CONC 31.2 g/dL (32.0-36.0); Mean Corpuscular Hemoglobin 29.2 pg (27.0-33.0); Mean Corpuscular Volume 93.4 fl (81.6-98.3); Platelet Count 155 10x3/uL (150-450); RBC Distribution Width 18.2 % (11.5-14.5); Red Blood Cell (RBC) Count 2.88 10x6/uL (3.90-5.03); White Blood Cell (WBC) Count 2.8 10x3/uL (3.5-10.5)
[2021-07-09 07:06] LABS: Anion Gap 13 mmol/L (10-20); BUN (Urea Nitrogen) 4 mg/dL (9.8-20.1); Calc. Creatinine Clearance 103 mL/min (70-130); Carbon Dioxide 25 mmol/L (23-31); Chloride 102 mmol/L (98-107); Magnesium 1.8 mg/dL (1.6-2.6); Sodium 136 mmol/L (136-145)
[2021-07-09 07:47] LABS: Band 23 % (5-11); Lymphocytes 25 % (21-51); Monocytes 3 % (0-10); Reactive Lymphocytes 6 % (0-10)
[2021-07-09 07:48] LABS: Neutrophil 43 % (42-75)
[2021-07-09 07:49] LABS: Anisocytosis SLIGHT = 6-15 cells (100X) (0-5/hpf); Microcytosis SLIGHT = 6-15 cells (100X) (0-5/hpf); Ovalocytes SLIGHT = 2-5 cells (100X) (0-1/hpf)
[2021-07-09 07:50] LABS: Large Platelets SLIGHT; Platelet Morphology Comment Appears Adequate
[2021-07-09 07:51] LABS: MDiff Complete? YES; Manual Diff?? YES
[2021-07-09] MEDS: Amoxicillin/Potassium Clav 875 MG TAB PO SCH (08:52)
[2021-07-09] MEDS: NIFEdipine XL 60 MG TAB PO SCH (08:52)
[2021-07-09] MEDS: Fenofibrate Nanocrystallized 145 MG TAB PO SCH (08:52)
[2021-07-09] MEDS: Apixaban 5 MG TAB PO SCH (08:52)
[2021-07-09] MEDS: Bupropion 150 MG XL TAB PO SCH (08:52)
[2021-07-09] MEDS: Famotidine 20 MG TAB PO SCH (08:53)
[2021-07-09] MEDS: Pramipexole Di-HCl 0.25 MG TAB PO SCH (08:53)
[2021-07-09 09:22] LABS: Calcium 8.2 mg/dL (7.8-10.44); Glucose 77 mg/dL (83-110)
[2021-07-09 11:50] VITALS: TEMP 98.6
[2021-07-09] MEDS: Capsaicin 0.025% Cream 60 gm Tube TOP PRN (13:23)
[2021-07-09] MEDS ORDERED: oxyCODONE 5 MG TAB ONE (14:24)
[2021-07-09 16:03] LABS: SARS-CoV-2 PCR by NAA Not Detected (NotDetected)
[2021-07-09 16:12] VITALS: BP 110/68
== END 2021-07-09 18:49 | disposition home health service (06) | DRG 871 ==
LOC: CSHERS 17:30 → UNDOADMOB 22:58 → CSHERHOLD 22:58 → UNDOADMOB 07-02 00:46 → INTOOBSV 07-02 00:47 → OBSVTOIN 07-02 00:47 → CSHTELE 07-02 07:58 → CSHERHOLD 07-02 07:58
PROVIDERS: ADMIT Student in an Organized Health Care Education/Training Program; ATTEND Internal Medicine
DX: A41.9 Sepsis, unspecified organism (principal); K65.1 Peritoneal abscess; D61.810 Antineoplastic chemotherapy induced pancytopenia; K57.20 Diverticulitis of large intestine with perforation and abscess without bleeding; J96.11 Chronic respiratory failure with hypoxia; C79.89 Secondary malignant neoplasm of other specified sites; N30.00 Acute cystitis without hematuria; Z20.822 Contact with and (suspected) exposure to COVID-19; E87.6 Hypokalemia; E03.9 Hypothyroidism, unspecified; M54.9 Dorsalgia, unspecified; I51.3 Intracardiac thrombosis, not elsewhere classified; Z90.89 Acquired absence of other organs; Z90.49 Acquired absence of other specified parts of digestive tract; E78.5 Hyperlipidemia, unspecified; F41.9 Anxiety disorder, unspecified; Z79.01 Long term (current) use of anticoagulants; Z79.82 Long term (current) use of aspirin; Z79.890 Hormone replacement therapy; Z79.899 Other long term (current) drug therapy; I12.9 Hypertensive chronic kidney disease with stage 1 through stage 4 chronic kidney disease, or unspecified chronic kidney disease; N18.2 Chronic kidney disease, stage 2 (mild); Z85.850 Personal history of malignant neoplasm of thyroid; Z88.2 Allergy status to sulfonamides
CPT/HCPCS: 36415; 51701; 71045; 74177; 80048; 80053; 80202; 81003; 81015; 82550; 82553; 83605; 83690; 83735; 83880; 84145; 84443; 84484; 85025; 87040; 87077; 87086; 87149; 87186; 93005; 93010; 93970; 94760; 96365; 96367; 96375; J0360; J0696; J1650; J2185; J2270; J2543; J3370; J3475; J3490; J7042; J7050; S0028; U0002; U0003; U0005